=== PATIENT | male | born 1975 | race African-American/Black ===

== ENCOUNTER 2018-07-14 22:42 | Emergency (ER) | payer SELFPAY ==
[2018-07-14] MEDS ORDERED: LIDOCAINE 1% 20 ML MDV ONE (23:13)
[2018-07-14] MEDS ORDERED: HYDROCODONE/APAP 10/325 TAB ONE (23:29)
[2018-07-15] MEDS ORDERED: MORPHINE 4 MG/ML SYR ONE (01:24)
[2018-07-15] MEDS ORDERED: ONDANSETRON 4 MG (ODT) TAB ONE (01:24)
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
--- NOTE | 2018-07-15 11:38 | RAD REPORT ---
EXAM DESCRIPTION: RAD - Foot Right 3 View - 07/15/2018 12:30 am CLINICAL HISTORY: PAIN COMPARISON: No comparisons FINDINGS: Evidence of prior amputation at the level of the mid shaft of the first metatarsal noted. Soft tissues are prominent in the region. No acute fracture or dislocation seen. Hardware plate is pr esent in the fibula. IMPRESSION: No acute finding demonstrated.
--- NOTE | 2018-07-16 11:36 | RAD REPORT ---
EXAM DESCRIPTION: CT Head Without Intravenous Contrast CT Maxillofacial Without Intravenous Contrast CLINICAL HISTORY: The patient is 43 years old and is Male; TRAUMA TECHNIQUE: Axial computed tomography images of the head/brain and face without intravenous contrast. Sagittal and coronal reformatted images of the face were created and reviewed. This CT exam was performed using one or more of the following dose reduction techniques: automated exposure control, adjustment of the mA and/or kV according to patient size, and/or use of iterative reconstruction severino hnique. COMPARISON: None. FINDINGS: BRAIN: Unremarkable. No hemorrhage. No significant white matter disease. No edema . VENTRICLES: Unremarkable. No ventriculomegaly. BONES/JOINTS: No acute fracture. SOFT TISSUES: Unremarkable. SINUSES: Mild mucosal thickening in the maxillary sinuses. No air-fluid level. Mild maxillary sinus mucosal thickening. MASTOID AIR CELLS: Unremarkable as visualized. No mastoid effusion. ORBITS: Left preseptal compartment soft tissue swelling extending to the preseptal compartment. Th ere is mild subcutaneous emphysema in the inferior superior palpebral soft tissues. Soft tissue swell ing extends laterally to the temporal region as well as to the medial canthus an supraorbital soft ti ssue with small laceration. Also noted is extension inferiorly to the premaxillary soft tissues. No r etrobulbar abnormality. The globes are unremarkable. IMPRESSION: Limited evaluation due to the lack of soft tissue maxillofacial images and coronal/sagit beatriz reconstruction of the brain. 1. No acute intracranial abnormality. 2. Left preseptal and postseptal soft tissue swelling with periorbital extension and small lacerati on with associated subcutaneous emphysema as detailed above. Electronically signed by: Matthew Alvarado DO 07/15/2018 12:30 AM HEAD OF BUSINESS DEVELOPMENT Due to temporary technical issues with the PACS/Fluency reporting system, reports are being signed by the in house radiologist as a courtesy to ensure prompt reporting. The interpreting radiologist is f ully responsible for the content of the report.
== END 2018-07-15 01:45 | disposition home or self-care (01) ==
LOC: ER 22:42
PROC: 08QPXZZ Repair Left Upper Eyelid, External Approach (ICD-10-PCS; principal; 2018-07-15)
PROC: 0CQ0XZZ Repair Upper Lip, External Approach (ICD-10-PCS; 2018-07-15)
DX: S01.112A Laceration without foreign body of left eyelid and periocular area, initial encounter (principal); S01.511A Laceration without foreign body of lip, initial encounter; S90.31XA Contusion of right foot, initial encounter; Y04.8XXA Assault by other bodily force, initial encounter; Y93.9 Activity, unspecified; Y92.89 Other specified places as the place of occurrence of the external cause; I10 Essential (primary) hypertension
CPT/HCPCS: 70450; 70486; 76377; 96372; 99284

== ENCOUNTER 2018-07-20 23:21 | Emergency (ER) | payer SELFPAY ==
[2018-07-21] MEDS ORDERED: LIDOCAINE 2% MPF 5 ML VIAL ONE (00:12)
[2018-07-21] MEDS ORDERED: HYDROCODONE/APAP 5/325 MG TAB ONE (00:12)
[2018-07-21] MEDS ORDERED: LIDOCAINE 1% MPF 5 ML VIAL ONE (00:16)
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
== END 2018-07-21 01:45 | disposition home or self-care (01) ==
LOC: ER 23:21
PROC: 0JQP0ZZ Repair Left Lower Leg Subcutaneous Tissue and Fascia, Open Approach (ICD-10-PCS; principal; 2018-07-20)
DX: S81.812A Laceration without foreign body, left lower leg, initial encounter (principal); V47.1XXA Car passenger injured in collision with fixed or stationary object in nontraffic accident, initial encounter; I10 Essential (primary) hypertension; Z48.02 Encounter for removal of sutures
CPT/HCPCS: 99284